=== PATIENT | female | born 2005 | race Caucasian/White ===

== ENCOUNTER 2024-09-02 15:54 | Emergency (ER) | payer OTHER ==
[~2024-09-02] VITALS: Ht 160 cm; Wt 75.0 kg
[2024-09-02] MEDS: BACITRACIN 0.9 GM PACKET OINTMENT TP ONE (18:56)
[2024-09-02] MEDS: LIDOCAINE 1% 10 ML VIAL SQ ONE (18:56)
[2024-09-02] MEDS: IBUPROFEN 200 MG TABLET PO ONE (18:56)
[2024-09-02] MEDS: ACETAMINOPHEN 500 MG TABLET PO ONE (18:56)
[2024-09-02] MEDS ORDERED: BACI28.410 TP (19:09)
[2024-09-02] MEDS ORDERED: IBUP-1554 PO (19:09)
[2024-09-02] MEDS ORDERED: ACET-66 PO (19:09)
[2024-09-02 19:18] VITALS: BP 119/74; PULSE 68; RESP 15; TEMP 97.3; O2SAT 98
== END 2024-09-02 19:32 | disposition home or self-care (01) ==
LOC: EMS 15:54
DX: S91.011A Laceration without foreign body, right ankle, initial encounter (principal); S90.01XA Contusion of right ankle, initial encounter; M41.9 Scoliosis, unspecified; V09.9XXA Pedestrian injured in unspecified transport accident, initial encounter; Y93.89 Activity, other specified; Y92.89 Other specified places as the place of occurrence of the external cause; Y99.8 Other external cause status
CPT/HCPCS: 99283; 73610; 12001; J3490